=== PATIENT | male | born 1940 | race Two or more races ===

== ENCOUNTER 2022-03-01 05:25 | Day surgery (SDC) | payer OTHER ==
[~2022-03-01 05:25] MED LIST: APRESOLINE 10MG10 MG; AVAPRO150 MG; CIPRO500 MG PO; PROSCAR5 MG; PYRIDIUM200 MG PO
== END 2022-03-01 12:20 | disposition home or self-care (01) ==
LOC: AMB-ENDOS 05:25
PROVIDERS: ATTEND Surgery
DX: D12.0 Benign neoplasm of cecum (principal)

== ENCOUNTER → 2023-01-31 | Outpatient (CLI) | payer OTHER | END | disposition home or self-care (01) | LOC: TOM 09:06 | PROVIDERS: ATTEND General Practice | DX: R10.32 Left lower quadrant pain (principal) ==